=== PATIENT | female | born 1980 | race Caucasian/White ===

== ENCOUNTER → 2021-12-12 | Outpatient (CLI) | payer BC ==
[~2021-12-12] MED LIST: AMOX TR-K CLV1 EAC4 PO; IROSPAN 24/6 T1 EACH PO; PAIN RELIEF500 M1 PO
[2021-12-12 11:55] LABS: HEMOGLOBIN 9.3 gm/dl (12.3-15.3); RED BLOOD COUNT 4.3 M/UL (4.00-5.10); WHITE BLOOD COUNT 5.6 K/UL (4.5-11.0)
== END ==
LOC: OPSV2 10:00
PROVIDERS: Obstetrics & Gynecology
DX: Z01.812 Encounter for preprocedural laboratory examination (principal); N93.9 Abnormal uterine and vaginal bleeding, unspecified
CPT/HCPCS: 81001; 85025

== ENCOUNTER → 2021-12-18 | Outpatient (CLI) | payer BC ==
[~2021-12-18] MED LIST changes: +COLACE100 MG PO; +FERROUS SULFAT325 MG PO; +IBUPROFEN600 MG PO; +PERCOCET 5-3251 EACH PO
== END ==
LOC: LAB 13:07
DX: Z01.812 Encounter for preprocedural laboratory examination (principal)
CPT/HCPCS: 36415; 86850; 86900; 86901; 86920